=== PATIENT | male | born 1955 | race Caucasian/White ===

== ENCOUNTER → 2020-12-06 02:27 | Outpatient (CLI) | payer MEDICARE, SELFPAY ==
[2020-12-06 19:43] LABS: SARS-CoV-2 RNA PCR Negative
== END ==
PROVIDERS: Visit Provider Urology
DX: Z01.812 Encounter for preprocedural laboratory examination (principal); Z20.822 Contact with and (suspected) exposure to COVID-19
CPT/HCPCS: C9803; U0003; U0005

== ENCOUNTER 2020-12-09 02:37 | Day surgery (SDC) | payer MEDICARE, SELFPAY ==
[2020-12-02 10:01] VITALS: BMI 30.9
--- NOTE | 2020-12-08 10:48 | WPDANESEPPF ---
Anes - Initial Pre Proc Eval Procedure: Operation Date: 12/09/20 14:30 Proposed Procedures p Cystoscopy, Possible Left Retrograde Pyelogram, Possible Left Ureteroscopy, Bladder Biopsy - Azar Cole MD s Possible Trans Urethral Resection Bladder Tumor - Azar Cole MD Date/Time: 12/08/20 10:48 Surgeon: Azar Cole MD Pre Op Diagnosis: Bladder CA Patient Data Age: 65 Gender: M Height: 1.78 m Weight: 97.72 kg Allergies Allergy/AdvReac Type Severity Reaction Status Date / Time No Known Allergies Allergy Unverified 07/13/19 08:32 Home Medications Medication Instructions Recorded Confirmed Type Adults Multivitamin 1 tablet PO DAILY 07/13/19 12/02/20 History lisinopril 40 mg PO DAILY 07/13/19 12/02/20 History allopurinol 100 mg QAM 12/02/20 12/02/20 History lovastatin 10 mg QAM 12/02/20 12/02/20 History Patient hx anesthesia problems: none Family hx anesthesia problems: none [facility] Past Medical History Medical History (Updated 12/08/20 @ 10:51 by Lonnie Mejia MD) Arthritis Cancer BLADDER HTN (hypertension) Hypercholesterolemia Obesity Social History Social History Smoking status: Never smoker Second hand tobacco smoke exposure: No Alcohol intake: never Substance use: never Substance use type: does not use Living arrangements: with family Spiritual care concerns: No Anes - Eval Final PreProcedure Day of Procedure 12/08/20 10:48 Patient weight: obese Heart: regular rate and rhythm Lungs: clear to auscultation and normal air movement Airway: Mallampati scale class II Neurological: alert and oriented Last oral intake: >/= 8 hours ASA classification: III Emergent: no Anesthetic plan: proceed Anesthesia type and monitoring: general LMA Informed Consent: The patient's anesthetic plan and its attendant risks and benefits were discussed with the patient/family/POA. Questions were solicited and answers provided to the satisfaction of the patient/family/POA.
[2020-12-09] VITALS (8 sets, daily range): BP systolic 108–146; BP diastolic 67–89; PULSE 58–80; RESP 14–18; TEMP 36.1–36.3; O2SAT 95–100
--- NOTE | ~2020-12-09 | XR_ITS ---
EXAMINATION: XR retrograde pyelogram LT EXAM DATE: 12/09/2020 15:02 INDICATION: Retrograde pyelogram. TECHNIQUE: Fluoroscopy used during XR retrograde pyelogram LT performed by Dr. Azar Cole MD, urologist. The radiologist Andrew Hernández M.D. dictating this report of the image(s) available wa s not present for the procedure. Total fluoroscopic time of 21 seconds. The DAP for this procedure was 291 radcm2. A total of 7 images sent to PACS from the exam. FINDINGS: Left ureter was cannulated, injected. Mildly dilated left extrarenal pelvis without caliec tasis. Correlate with procedure note. IMPRESSION: Fluoroscopy used during XR retrograde pyelogram LT. Reviewed, dictated and finalized at location A.
[2020-12-09] MEDS: LACTATED RINGERS 1,000 ML 30 ML IV CONT ×2 (13:05→15:15)
--- NOTE | 2020-12-09 14:07 | WPDHPUPDATE1 ---
History and Physical Update Update Date/Time: 12/09/20 14:07 History and Physical has been reviewed, including an updated exam of the patient. There are NO changes in the patient's condition. Risks, benefits, and alternatives have been discussed and questions answered. Patient agrees to proceed with procedure.
[2020-12-09] MEDS: ceFAZolin 2 GM/D5W 50 ML 2 GM/50 ML BAG IVPB (14:21)
[2020-12-09] MEDS: LIDOCAINE HCL 2% GEL UROJET 10 ML PKG MUCOUS MEM (15:01)
--- NOTE | 2020-12-09 15:02 | P.OP_ITS ---
Procedure Note - Detailed Date of procedure: 12/09/20 Pre-op diagnosis: Bladder CA Post-op diagnosis: same Procedure performed: Cystoscopy, left retrograde pyelogram, left ureteroscopy, transurethral resection of bladder tumor small 1.5 cm area, urethral dilation Description of procedure: Patient is taken to the operative suite and correctly identified. Once anesthesia was obtained was placed in dorsal lithotomy position and prepped and draped usual sterile fashion. Twenty-two Ecuadorean scope inserted the bladder. There are no papillary growths but he does have irregularity just superior and lateral to the left ureteral orifice. There is quite a bit of erythema present a prior resection site. At this point a pyelogram was performed. There were no filling defects noted but the renal pelvis and calyces appeared to be somewhat dilated. We thus placed a flexible scope after dilating with an 8/10 dilator. There was some mild narrowing at the UPJ area. Pt entering the renal pelvis calices were all and inspected there was no tumors or irregularities. Scope was removed. We then dilated the orifice this to 26 Ecuadorean. Twenty-four Ecuadorean resectoscope sheath was inserted the bladder. It went and dissected this erythematous irregular area superior lateral to the left ureteral orifice. We fulgurated the base. 2% viscous lidocaine was inserted urethra patient is taken recovery stable condition. He will call for path results in a week's time. Anesthesia: GLMA Surgeon: Azar Cole MD Drains: No Packing: No Pathology: yes Complications: No immediate complications Condition: stable Disposition: PACU
[2020-12-09] MEDS: HYDROmorphone HCL INJ (*CRX) 1 MG/ML SYR 0.25 MG IV PUSH ×2 (15:23→15:29)
== END 2020-12-09 16:50 | disposition home or self-care (01) ==
PROVIDERS: PCP Family Medicine; Visit Provider Urology
PROC: (CPT 52352; principal; 2020-12-09 14:30)
PROC: 0TBB8ZZ Excision of Bladder, Via Natural or Artificial Opening Endoscopic (ICD-10-PCS; CPT 52234; 2020-12-09 14:30)
DX: N30.20 Other chronic cystitis without hematuria (principal); I10 Essential (primary) hypertension; E78.00 Pure hypercholesterolemia, unspecified; E66.9 Obesity, unspecified; Z68.30 Body mass index [BMI] 30.0-30.9, adult
CPT/HCPCS: 52234; 74420; 88305; A9270; C1769; J0690; J1100; J1170; J2250; J2370; J2405; J2704; J3010; J7120; Q9966

== ENCOUNTER 2022-10-21 07:50 | Outpatient (CLI) | payer MEDICARE, SELFPAY ==
--- NOTE | ~2022-10-21 | CT_ITS ---
. EXAMINATION: CT abdomen pelvis wo/w con DATE: 10/21/2022 08:41 INDICATION: Malignant neoplasm of urinary bladder neck TECHNIQUE: Computed tomography (CT) of the abdomen and pelvis was performed without and subsequently with 130 CC Omnipaque 350 intravenous contrast. Automated exposure control and iterative reconstructi on technique were employed. Exam dose: 2471.70 mGy-cm total exam DLP. COMPARISON: 08/15/2017 CT abdomen pelvis 10/21/2022 KUB FINDINGS: Stable 3 mm middle lobe nodule since 08/15/2017, consistent with benign process, likely a sm all granuloma. The lung bases are clear of infiltrate or consolidation. Normal heart size. No pericardial or pleural effusion. Small sliding hiatal hernia. There are calcified hepatic and splenic granulomas. No hepatic space-occupying mass lesion. The gallbladder is unremarkable. No bile duct or pancreatic d uct dilatation. No pancreatic mass lesion or acute or calcification. Normal splenic size. Normal morphology of the adrenal glands. Several small right renal cysts are suggested, the largest 6.5 mm. There are approximately 5 left araceli al cysts, the largest measuring up to 4.3 cm. No urinary tract calculus or hydroureteronephrosis. Pro minent left renal pelvis, likely due to ureteropelvic disproportion. Otherwise no urinary tract calcu anton is noted. Mild soft tissue thickening at the posterior base of the urinary bladder which may be due to the hist ory of malignant neoplasm of the bladder neck; alternatively, prostate enlargement or prostate carcin rohan may yield a similar appearance. There is mild diffuse bladder wall thickening otherwise. Mild prostate enlargement and minimal prostate calcification. There is normal caliber and minimal atherosclerotic calcification of the abdominal aorta. No intraper itoneal or retroperitoneal or pelvic mass lesion or adenopathy or ascites is noted otherwise. Normal appendix. Diverticulosis of left and right colon; no CT evidence of diverticulitis. No bowel obstruction, bowel wall thickening, pneumatosis or intraperitoneal free air. Bilateral fat-containing inguinal hernias, larger on the right. Small fat-containing umbilical hernia. Diffuse idiopathic skeletal hyperostosis of the thoracic spine. Multilevel degenerative disc disease of the lumbar spine including moderately prominent degenerative disc disease and approximately 4.4 mm retrolisthesis at L2-3, severe degenerative disc disease at L4- 5, degenerative change at the apophyseal joints. Mild likely chronic anterior wedge compression fracture deformities at T12 and L1 and to a greater ex tent T8. Right L5 pars interarticularis defect. IMPRESSION: Small sliding hiatal hernia Bilateral renal cysts Chronic left ureteropelvic disproportion Mild soft tissue thickening at the posterior bladder base which may be due to history of malignant ne oplasm of bladder neck or alternatively prostate enlargement and/or carcinoma Diverticulosis of left and right colon; no evidence of diverticulitis Normal appendix Bilateral fat-containing inguinal hernias, larger on the right T8, T12 and L1 likely chronic compression fractures Chronic right L5 pars interarticularis defect Diffuse idiopathic skeletal hyperostosis of the thoracic spine Degenerative change of the lumbar spine Reviewed, dictated and finalized at Location A. Reviewed, dictated and finalized at location L. IMPRESSION: Small sliding hiatal hernia Bilateral renal cysts Chronic left ureteropelvic disproportion Mild soft tissue thickening at the posterior bladder base which may be due to h istory of malignant neoplasm of bladder neck or alternatively prostate enlargem ent and/or carcinoma Diverticulosis of left and right colon; no evidence of divertic
--- NOTE | ~2022-10-21 | XR_ITS ---
EXAMINATION: XR abdomen/kub 1V DATE: 10/21/2022 08:09 INDICATION: Malignant neoplasm of urinary bladder neck. TECHNIQUE: A supine view of the abdomen on 2 radiographs was obtained. COMPARISON: CT abdomen and pelvis 10/21/2022 FINDINGS: There are no dilated loops of bowel. There is a moderate volume of stool in the colon. Ther e are phleboliths in the pelvis. IMPRESSION: 1. No urolithiasis. Reviewed, dictated and finalized at location A. IMPRESSION: 1. No urolithiasis.
[2022-10-21 08:21] LABS: Estimated Glomerular Filt Rate 30
== END 2022-10-21 07:51 | disposition home or self-care (01) ==
PROVIDERS: PCP Family Medicine; Visit Provider Urology
DX: C67.5 Malignant neoplasm of bladder neck (principal); K44.9 Diaphragmatic hernia without obstruction or gangrene; N28.1 Cyst of kidney, acquired; K57.30 Diverticulosis of large intestine without perforation or abscess without bleeding; K40.20 Bilateral inguinal hernia, without obstruction or gangrene, not specified as recurrent; M47.896 Other spondylosis, lumbar region
CPT/HCPCS: 74018; 74178; Q9967

== ENCOUNTER 2022-11-19 08:25 | Outpatient (CLI) | payer MEDICARE, SELFPAY ==
--- NOTE | ~2022-11-19 | NM_ITS ---
EXAMINATION: MARLIN martinez renal scan DATE: 11/19/2022 10:18 INDICATION: Left hydronephrosis TECHNIQUE: 8.5 mCi Tc-99m MAG3 was administered IV. 40 mg furosemide was administered IV immediately afterward. The patient was scanned in the supine position. A posterior abdominal radionuclide angiog milagro was obtained. A subsequent time course of static images of the kidneys, ureters, and bladder was obtained. COMPARISON: None FINDINGS: The posterior abdominal radionuclide angiogram and sequential static images show normal size, positio n, and morphology of the kidneys. Peak renal parenchymal uptake was 3.4 min in left kidney and 3.4 mi n in right kidney (normal peak 3-5 minutes). The relative early renal uptake was 40% on the left and 60% on the right (<40% is abnormal). No abnormalities of the ureters or bladder are seen. T1/2 for clearance of activity from the left kidney and proximal collecting system was 18 minutes. T1/2 for clearance of activity from the right kidney and proximal collecting system was 11 minutes. Notes on interpretation: T1/2 <10 minutes is normal, 10-15 minutes is low grade obstruction of questi onable clinical significance, 15-20 minutes is partial obstruction that is likely clinically signific ant, >20 minutes is high grade obstruction. Note that false positives may be seen with supine positio tianna, dehydration, severely dilated nonobstructed kidney, atonic collecting system, poor renal functi on, and chronic furosemide use. IMPRESSION: 1. Mildly decreased left renal function which contributes 40% to total renal function. 2. Moderately delayed activity clearance from the left kidney consistent with partial obstruction th at is likely clinically significant. 3. Borderline delayed clearance from the right kidney where there is no evident hydronephrosis identi fied on the current scintigraphic images or prior CT suggesting there may be a component of baseline mild delayed due to decreased renal function, dehydration or supine positioning. Reviewed, dictated and finalized at location A. IMPRESSION: 1. Mildly decreased left renal function which contributes 40% to total renal f unction. 2. Moderately delayed activity clearance from the left kidney consistent with partial obstruction that is likely clinically significant. 3. Borderline delayed clearance from the right kidney where there is no evident hydronephrosis identified on the current scintigraphic images or prior CT sugg esting there may be a component of baseline mild delayed due to decreased renal function, dehydration or supine positioning.
== END 2022-11-19 08:26 | disposition home or self-care (01) ==
PROVIDERS: PCP Family Medicine; Visit Provider Urology
DX: N13.30 Unspecified hydronephrosis (principal); R93.422 Abnormal radiologic findings on diagnostic imaging of left kidney; R93.421 Abnormal radiologic findings on diagnostic imaging of right kidney
CPT/HCPCS: 78708; A9562; J1940

== ENCOUNTER 2023-03-21 12:35 | Outpatient (CLI) | payer MEDICARE, SELFPAY ==
--- NOTE | ~2023-03-21 | NM_ITS ---
EXAMINATION: MARLIN martinez renal scan DATE: 03/21/2023 14:56 INDICATION: Hydronephrosis TECHNIQUE: 8 mCi Tc-99m MAG3 was administered IV. 40 mg furosemide was administered IV immediately a fterward. The patient was scanned in the supine position. A posterior abdominal radionuclide angiogra m was obtained. A subsequent time course of static images of the kidneys, ureters, and bladder was ob tained. COMPARISON: 11/19/2022 FINDINGS: The posterior abdominal radionuclide angiogram and sequential static images show normal size, positio n, and morphology of the kidneys. Peak renal parenchymal uptake was 3.4 min in left kidney and 3.4 mi n in right kidney (normal peak 3-5 minutes). The relative early renal uptake was 38% on the left and 62% on the right (<40% is abnormal). No abnormalities of the ureters or bladder are seen. T1/2 for clearance of activity from the left kidney and proximal collecting system was 18 minutes. T1/2 for clearance of activity from the right kidney and proximal collecting system was 11 minutes. Notes on interpretation: T1/2 <10 minutes is normal, 10-15 minutes is low grade obstruction of questi onable clinical significance, 15-20 minutes is partial obstruction that is likely clinically signific ant, >20 minutes is high grade obstruction. Note that false positives may be seen with supine positio tianna, dehydration, severely dilated nonobstructed kidney, atonic collecting system, poor renal functi on, and chronic furosemide use. IMPRESSION: 1. No significant change in mildly decreased left renal function which contributes 30% of total lilliana l function. 2. Unchanged moderately delayed activity clearance from the left kidney consistent with partial obst ruction that is likely clinically significant. 3. Unchanged borderline delayed clearance from the right kidney without evident hydronephrosis could be due to either low-grade obstruction of no clinical significance, decreased renal function, dehydra tion or supine positioning. Reviewed, dictated and finalized at location A. IMPRESSION: 1. No significant change in mildly decreased left renal function which contrib utes 30% of total renal function. 2. Unchanged moderately delayed activity clearance from the left kidney consis tent with partial obstruction that is likely clinically significant. 3. Unchanged borderline delayed clearance from the right kidney without evident hydronephrosis could be due to either low-grade obstruction of no clinical sig nificance, decreased renal function, dehydration or supine positioning.
== END 2023-03-21 12:36 | disposition home or self-care (01) ==
PROVIDERS: PCP Family Medicine; Visit Provider Urology
DX: N13.30 Unspecified hydronephrosis (principal)
CPT/HCPCS: 78708; A9562; J1940

== ENCOUNTER 2023-10-28 09:25 | Outpatient (CLI) | payer MEDICARE, SELFPAY ==
--- NOTE | 2023-10-28 09:38 | ECG_ITS ---
Measurements Intervals [place] Rate: 56 P: 50 WA: 183 QRS: -5 QRSD: 114 T: 15 QT: 388 QTc: 374 Interpretive Statements SINUS BRADYCARDIA LOW QRS VOLTAGE IN PRECORDIAL LEADS [QRS DEFLECTION < 1.0 mV IN CHEST LEADS] PREVIOUS ANTERIOR AND INFERIOR INFARCTION ABNORMAL ECG COMPARED TO ECG 07/23/2019 09:17:27 NO SIGNIFICANT CHANGES Electronically Signed On 10-28-2023 12:32:33 CDT by Sea León M.D.
== END 2023-10-28 09:26 | disposition home or self-care (01) ==
LOC: ANHSURGERY 09:31
PROVIDERS: PCP Family Medicine; Visit Provider Urology
DX: C67.9 Malignant neoplasm of bladder, unspecified (principal); I10 Essential (primary) hypertension; Z01.818 Encounter for other preprocedural examination; R94.31 Abnormal electrocardiogram [ECG] [EKG]
CPT/HCPCS: 87086; 93005

== ENCOUNTER 2023-11-01 00:49 | Day surgery (SDC) | payer MEDICARE, SELFPAY ==
[2023-10-27 13:20] VITALS: BMI 32.3
--- NOTE | 2023-10-27 13:28 | PC.NURSE ---
PRE-OP INSTRUCTIONS, PLEASE READ CAREFULLY Report to the Outpatient Waiting Room, entrance under the green pavilion located off [facility], at time _0700_ on date _11/01/23_. Planned Procedure Time: _0900_. Time changes happen often and if your time is changed the preop area will call you the afternoon before. - You and your visitor will be asked to self-screen and do not enter if you have any COVID symptoms. - A mask is optional within the hospital at this time. Patients may have clear liquids (water, carbonated beverages, clear teas, apple juice) until 3 hours prior to surgery (0600 AM) with a maximum of 20 ounces. - No food from midnight until time of surgery Take the following medications with a SIP of water the morning of surgery: _NONE_ DO NOT STOP ANY OF YOUR OTHER PRESCRIPTION MEDICATIONS PRIOR TO SURGERY ?EXCEPT THE FOLLOWING Medications to discontinue per ANESTHESIA - _MULTIVITAMIN 3 DAYS PRIOR TO SURGERY, Date to take last dose 10/28/23_ Please no make-up, nail yi, hairspray, perfume, deodorant, or body powder the day of surgery. No jewelry (including any body piercings) or valuables the day of surgery, leave them at home. Please take a shower or bath the night before, or the morning of, surgery with an antibacterial soap. Wear comfortable, loose fitting clothing. - Jewelry must be removed prior to entering the operating room. Rings and piercings that are not removed may be cut off. - The hospital will not accept responsibility for valuables. - Please leave all valuables, including medications, at home the day of surgery. If you are going home after surgery, a licensed hi lo driver must drive you home. - NO public transportation without another adult if you receive anesthesia. - We recommend that an adult stay with you for 24 hours following discharge. - We also recommend that you do not drive, make important decision, drink alcoholic beverages, or take any drugs that were not prescribed by your health care provider for at least 24 hours after your discharge time. Follow any additional instructions given to you from your surgeon. If you or anyone in your household have experienced Covid symptoms in the past week, please notify your surgeon or the nurse liaison at the phone number below for possible testing. Telephone instructions given to _PATIENT_and asked if any additional questions and then verbalized understanding. Patient advised to call surgeon office or pre surgery nurse liaison [phone] if any additional questions.
--- NOTE | ~2023-11-01 | XR_ITS ---
EXAMINATION: XR retrograde pyelogram BI DATE: 11/01/2023 09:05 INDICATION: Bladder cancer. TECHNIQUE: 6 intraoperative fluoroscopic views of the abdomen and pelvis were obtained. I was not pre sent. Fluoroscopy time was 16 seconds. COMPARISON: None. FINDINGS: The left-sided retrograde pyelogram demonstrates mild left hydronephrosis with transition p oint at the left ureteropelvic junction. There are numerous 2 mm filling defects in the ureter. The r ight-sided retrograde pyelogram is normal. IMPRESSION: 1. Numerous small filling defects in the left ureter. The differential diagnosis includes ureteritis cystica and metastatic disease. 2. Mild left hydronephrosis with transition point at the ureteropelvic junction. Reviewed, dictated and finalized at location A. IMPRESSION: 1. Numerous small filling defects in the left ureter. The differential diagnosi s includes ureteritis cystica and metastatic disease. 2. Mild left hydronephrosis with transition point at the ureteropelvic junction .
[2023-11-01 06:46] VITALS: BP 133/89; PULSE 52; RESP 16; TEMP 36.6; O2SAT 99
[2023-11-01 06:48] VITALS: BMI 33.2
[2023-11-01] MEDS: LACTATED RINGERS 1,000 ML 30 ML IV CONT (07:15)
--- NOTE | 2023-11-01 07:20 | WPDHPUPDATE1 ---
History and Physical Update Update Date/Time: 11/01/23 07:20 History and Physical has been reviewed, including an updated exam of the patient. There are NO changes in the patient's condition. Risks, benefits, and alternatives have been discussed and questions answered. Patient agrees to proceed with procedure. Proceed with cystoscopy, bladder biopsy, possible bilateral retrogrades/ureteroscopy
--- NOTE | 2023-11-01 07:41 | P.PNAN_ITS ---
Anes - Initial Pre Proc Eval Procedure: Operation Date: 11/01/23 09:00 Proposed Procedures p Cystoscopy, Bladder Biopsy, Possible Retrograde Pyelogram, Ureteroscopy - Azar Cole MD Date/Time: 11/01/23 07:41 Surgeon: Azar Cole MD Pre Op Diagnosis: bladder cancer Patient Data Age: 68 Gender: M Height: 1.78 m Weight: 105 kg Last Vital Signs Temp 97.8 F 11/01/23 06:46 Pulse 52 L 11/01/23 06:46 Resp 16 11/01/23 06:46 BP 133/89 11/01/23 06:46 Pulse Ox 99 11/01/23 06:46 O2 Del Method Room Air 11/01/23 06:46 Allergies Allergy/AdvReac Type Severity Reaction Status Date / Time No Known Allergies Allergy Verified 11/01/23 07:33 Home Medications Medication Instructions Recorded Confirmed Type lisinopril 40 mg tablet 40 mg PO DAILY 07/13/19 10/27/23 History multivit with minerals-iron 18 1 tablet PO DAILY 07/13/19 11/01/23 History mg-folic ac 400 mcg-vit K 25 mcg tablet (Adults Multivitamin) allopurinol 100 mg tablet 100 mg QAM 12/02/20 10/27/23 History rosuvastatin 20 mg tablet 20 mg HS 10/27/23 10/27/23 History Patient hx anesthesia problems: none Family hx anesthesia problems: none Results Review: All pre-operative results and documents have been reviewed as part of the pre- operative evaluation. [facility] Past Medical History Medical History (Updated 12/08/20 @ 10:51 by Lonnie Mejia, ) Arthritis Cancer BLADDER HTN (hypertension) Hypercholesterolemia Obesity Social History Social History Smoking status: Never smoker Second hand tobacco smoke exposure: No Alcohol intake: never Substance use: never Substance use type: does not use Living arrangements: with family Spiritual care concerns: No Anes - Eval Final PreProcedure Day of Procedure 11/01/23 07:41 Patient weight: obese Heart: regular rate and rhythm Lungs: clear to auscultation Airway: Mallampati scale class II Neurological: alert and oriented Last oral intake: >/= 8 hours ASA classification: III Emergent: no Anesthetic plan: proceed Anesthesia type and monitoring: general LMA and standard monitoring Results Review: All pre-operative results and documents have been reviewed as part of the pre- operative evaluation. Informed Consent: The patient's anesthetic plan and its attendant risks and benefits were discussed with the patient/family/POA. Questions were solicited and answers provided to the satisfaction of the patient/family/POA.
[2023-11-01] MEDS: ceFAZolin 2 GM/D5W 50 ML 2 GM/50 ML BAG IVPB (08:34)
[2023-11-01] MEDS: LIDOCAINE HCL 2% GEL UROJET 10 ML PKG MUCOUS MEM (08:48)
--- NOTE | 2023-11-01 09:06 | W.PM.PROC2 ---
Procedure Note - Detailed Date of Procedure 11/01/23 Pre-op Diagnosis bladder cancer Post-op Diagnosis Same Procedure Performed Cystoscopy with bilateral retrogrades Surgeon Azar Cole MD Anesthesia General Description of Procedure Patient was taken to the operative suite correctly identified. Once anesthesia was obtained was placed in dorsal lithotomy position and prepped draped usual sterile fashion. Twenty-two Cook Islander scope was inserted into the bladder direct vision. There were no urethral strictures. The bladder itself was inspected entirety. The slight irregularity along the left lateral wall was not visualized today. Both ureteral orifices were seen in normal anatomic position. Ureteral catheter was inserted a pyelogram was performed bilaterally. There were no filling defects noted. He does have this apparent UPJ on the left. We have known about that for some time now. This point the procedure was terminated. Plan will be to simply do a cystoscopy in 6 months in the office. This completes dictation. Please send a copy to my office. Estimated Blood Loss 0 Drains No Packing No Pathology None sent Complications No immediate complications Disposition PACU
[2023-11-01 09:07] VITALS: BP 108/77; PULSE 72; RESP 20; TEMP 36.3; O2SAT 97
[2023-11-01 09:15] VITALS: BP 112/72; PULSE 63; RESP 17; O2SAT 96
[2023-11-01 09:27] VITALS: BP 113/75; PULSE 58; RESP 16; O2SAT 96
[2023-11-01 09:30] VITALS: BP 117/78; PULSE 54; RESP 16
== END 2023-11-01 10:20 | disposition home or self-care (01) ==
PROVIDERS: PCP Family Medicine; Visit Provider Urology
PROC: (CPT 52352; principal; 2023-11-01 09:00)
DX: Z08 Encounter for follow-up examination after completed treatment for malignant neoplasm (principal); Z85.51 Personal history of malignant neoplasm of bladder; I10 Essential (primary) hypertension; E78.00 Pure hypercholesterolemia, unspecified; E66.9 Obesity, unspecified; Z68.33 Body mass index [BMI] 33.0-33.9, adult
CPT/HCPCS: 52005; 74420; C1758; C1769; J0690; J1100; J2405; J2704; J3010; J7120; Q9966

== ENCOUNTER 2024-03-27 12:09 | Outpatient (CLI) | payer MEDICARE, SELFPAY ==
--- NOTE | ~2024-03-27 | NM_ITS ---
EXAMINATION: MARLIN martinez renal scan DATE: 03/27/2024 14:58 INDICATION: Hydronephrosis. TECHNIQUE: 8.0 mCi Tc-99m MAG3 was administered IV. 40 mg furosemide was administered IV immediately afterward. The patient was scanned in the upright/supine position. A posterior abdominal radionuclid e angiogram was obtained. A subsequent time course of static images of the kidneys, ureters, and blad nicole was obtained. COMPARISON: CT abdomen and pelvis 10/21/2022, renal scan 03/21/2023 FINDINGS: The posterior abdominal radionuclide angiogram and sequential static images show normal siz e, position, and morphology of the kidneys. Peak renal parenchymal uptake was 3 min in right kidney a nd 6 min in left kidney (normal peak 3-5 minutes). The relative early renal uptake was 62% on the ri ght and 38% on the left (<40% is abnormal). No abnormalities of the ureters or bladder are seen. T1/2 for clearance of activity from the right kidney and proximal collecting system was 13 minutes. T1/2 for clearance of activity from the left kidney and proximal collecting system was 17 minutes. IMPRESSION: 1. Relatively decreased left kidney function, which is 38% of total renal function. 2. Delayed contrast clearance from left kidney and proximal collecting system, consistent with parti al obstruction that is likely clinically significant. Reviewed, dictated and finalized at location A. IMPRESSION: 1. Relatively decreased left kidney function, which is 38% of total renal func tion. 2. Delayed contrast clearance from left kidney and proximal collecting system, consistent with partial obstruction that is likely clinically significant.
== END 2024-03-27 12:10 | disposition home or self-care (01) ==
LOC: ANHIMG 12:12
PROVIDERS: PCP Family Medicine; Visit Provider Urology
DX: N13.30 Unspecified hydronephrosis (principal)
CPT/HCPCS: 78708; A9562; J1940

== ENCOUNTER 2025-03-05 12:31 | Outpatient (CLI) | payer MEDICARE, SELFPAY ==
--- NOTE | ~2025-03-05 | NM_ITS ---
EXAMINATION: MARLIN martinez renal scan DATE: 03/05/2025 13:29 INDICATION: Hydronephrosis TECHNIQUE: 8.1 mCi Tc-99m MAG3 was administered IV. 40 mg furosemide was administered IV immediately afterward. The patient was scanned in the upright/supine position. A posterior abdominal radionuclid e angiogram was obtained. A subsequent time course of static images of the kidneys, ureters, and blad nicole was obtained. COMPARISON: 03/27/2024 FINDINGS: The posterior abdominal radionuclide angiogram and sequential static images show normal size, positio n, and morphology of the kidneys. Peak renal parenchymal uptake was 8 min in left kidney and 5 min in right kidney (normal peak 3-5 minutes). The relative early renal uptake was 39% on the left and 61% on the right (<40% is abnormal). No abnormalities of the ureters or bladder are seen. T1/2 for clearance of activity from the left kidney and proximal collecting system was 24 minutes. T1/2 for clearance of activity from the right kidney and proximal collecting system was 11 minutes. Notes on interpretation: T1/2 <10 minutes is normal, 10-15 minutes is low grade obstruction of questi onable clinical significance, 15-20 minutes is partial obstruction that is likely clinically signific ant, >20 minutes is high grade obstruction. Note that false positives may be seen with supine positio tianna, dehydration, severely dilated nonobstructed kidney, atonic collecting system, poor renal functi on, and chronic furosemide use. IMPRESSION: 1. No change in relatively decreased left kidney function which accounts for 39% of total renal func tion. 2. Increasing degree of delayed activity clearance from the left kidney and proximal collecting syste m consistent with worsening now high-grade obstruction. 2. No delay in contrast clearance from either kidney to suggest fixed obstruction. Reviewed, dictated and finalized at location A. IMPRESSION: 1. No change in relatively decreased left kidney function which accounts for 3 9% of total renal function. 2. Increasing degree of delayed activity clearance from the left kidney and pro ximal collecting system consistent with worsening now high-grade obstruction. 2. No delay in contrast clearance from either kidney to suggest fixed obstruct ion.
== END 2025-03-05 12:32 | disposition home or self-care (01) ==
PROVIDERS: PCP Family Medicine; Visit Provider Urology
DX: R94.4 Abnormal results of kidney function studies (principal); N13.30 Unspecified hydronephrosis
CPT/HCPCS: 78708; A9562; J1938